=== PATIENT | female | born 1970 | race Hispanic/Latino ===

== ENCOUNTER 2017-10-26 12:56 | Outpatient (CLI) | payer OTHER ==
--- NOTE | 2017-10-26 15:07 | Ultrasound Report ---
Thyroid ultrasound: Hypothyroidism. The right lobe measures 13 x 13 x 32 mm in the left lobe measures 14 x 13 x 29 mm. The isthmus has a thickness of 3 mm. The thyroid gland is generally heterogeneous but there is no focal mass and no calcifications identified. Impression: Nonspecific heterogeneity. The possibilities of thyroiditis as an etiology should be considered.
== END 2017-10-26 12:57 | disposition home or self-care (01) ==
LOC: SPVWC 12:56
PROVIDERS: ATTEND Family Medicine
DX: E06.3 Autoimmune thyroiditis (principal); E03.9 Hypothyroidism, unspecified; D64.9 Anemia, unspecified; F41.9 Anxiety disorder, unspecified
CPT/HCPCS: 76536

== ENCOUNTER 2019-05-06 11:08 | Outpatient (CLI) | payer OTHER ==
--- NOTE | 2019-05-16 13:17 | Ultrasound Report ---
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 TECHNIQUE: Multiple real-time ultrasonographic grayscale and color Doppler images were obtained of th e thyroid. FINDINGS: The thyroid is small with heterogeneous echo pattern. The right lobe measures 3.6 x 1.4 x 1 .3 cm and the left lobe measures 3.3 x 1.4 x 1.3 cm. The isthmus measures 2.7 mm in AP thickness. An exophytic cyst at the margin of the inferior right thyroid lobe measures 3 mm. No mass. IMPRESSION: A small heterogeneous thyroid with a pattern typical of Beltran's thyroiditis. A probably benign cy st at the inferior margin of the right thyroid lobe. Signer Name: Jose Brennan MD Signed: 05/09/2019 5:30 PM Workstation Name: [id number]
== END 2019-05-06 11:09 | disposition home or self-care (01) ==
LOC: SPVWC 11:08
PROVIDERS: ATTEND Family Medicine
DX: E06.3 Autoimmune thyroiditis (principal); Z90.710 Acquired absence of both cervix and uterus
CPT/HCPCS: 76536